=== PATIENT | male | born 1975 | race Caucasian/White ===

== ENCOUNTER 2021-04-18 21:40 | Observation (INO) ==
[2021-04-19] MEDS ORDERED: Ondansetron 4 MG/2 ML VIAL IVP PRN (01:24)
[2021-04-19] MEDS ORDERED: Naloxone 0.4 MG/ML INJ IVP PRN (01:24)
[2021-04-19] MEDS ORDERED: Melatonin 3 MG TABLET PO PRN (01:24)
[2021-04-19] MEDS ORDERED: *HR* Heparin 5,000 UNIT/ML VIAL IVP ONE (02:25)
[2021-04-19] MEDS ORDERED: *HR* Heparin 5,000 UNIT/ML VIAL IVP PRN ×2 (02:25)
[2021-04-19] MEDS ORDERED: Heparin 25,000UNIT/250ML 1/2NS 25,000 UNIT/250 ML IV.SOLN IVC SCH (02:30)
[2021-04-19 03:26] LABS: Basophils # 0.1 K/mcL (0.0-0.2); Basophils % 0.6 %; Eosinophils # 0.3 K/mcL (0.0-0.6); Eosinophils % 2.9 %; Hematocrit 42.1 % (37.5-50.1); Hemoglobin 14.2 g/dL (12.9-16.9); Immature Granulocytes % 0.4 % (0-4); Lymphocytes # 2.4 K/mcL (0.6-4.6); Lymphocytes % 24.2 %; Mean Corpuscular HGB Conc 33.7 g/dL (31.6-35.5); Mean Corpuscular Hemoglobin 30.9 pg (28.0-33.3); Mean Corpuscular Volume 91.7 fL (83.0-100.0); Mean Platelet Volume 9.4 fL (9.4-12.4); Monocytes # 0.8 K/mcL (0.0-1.3); Monocytes % 7.7 %; Neutrophils # 6.4 K/mcL (1.6-8.9); Platelet Count 335 K/mcL (140-400); Red Blood Count 4.59 M/mcL (4.19-5.50); Segmented Neutrophils % 64.2 %
[2021-04-19 03:35] LABS: Heparin anti-factor XA UFH 0.49 IU/mL (0.30-0.70); Prothrombin Time 11.3 Seconds (9.4-12.1)
[2021-04-19 03:55] LABS: Alanine Aminotransferase 11 Units/L (7-52); Albumin 3.7 g/dL (3.5-5.7); Albumin/Globulin Ratio 1.3 (1.1-2.2); Alkaline Phosphatase 131 Units/L (34-104); Aspartate Amino Transferase 14 Units/L (13-39); BUN/Creatinine Ratio 17 (6-26); Bilirubin,Total 0.4 mg/dL (0.3-1.0); Blood Urea Nitrogen 14 mg/dL (6-20); Calcium 9.3 mg/dL (8.6-10.3); Carbon Dioxide 24 mEq/L (23-29); Chloride 105 mEq/L (98-107); Globulin 2.8 g/dL (2.4-3.5); Glucose 177 mg/dL (70-105); Magnesium 1.9 mg/dL (1.6-2.6); Osmolality,Calculated 289 (280-300); Phosphorous 4.6 mg/dL (2.7-4.5); Potassium 3.8 mEq/L (3.5-5.1); Sodium 137 mEq/L (136-145); Total Protein 6.5 g/dL (6.4-8.9); Troponin I 0.33 ng/mL (< 0.04); eGFR For African Americans > 60 (> 60); eGFR For Non-African Americans > 60 (> 60)
[2021-04-19] MEDS ORDERED: *HR* LORazepam 2 MG/ML VIAL IVP PRN ×3 (06:37)
[2021-04-19] MEDS ORDERED: *HR* Dextrose 50 % in Water (Vial) 50 ML VIAL IVP PRN (06:41)
[2021-04-19] MEDS ORDERED: D5% in Water 1,000 ML IVC PRN (06:41)
[2021-04-19] MEDS ORDERED: Dextrose Gel 15 GM/37.5 ML TUBE PO PRN ×2 (06:41)
[2021-04-19] MEDS ORDERED: Perflutren Lipid Microsphere 1.3 ML in 0.9 % Sodium Chloride 8.7 ML IVP PRN (06:42)
[2021-04-19] MEDS: Thiamine (B-1) 100 MG, Folic Acid 1 MG, MVI, adult with vitamin K 10 ML in 0.9 % Sodi... IVPB SCH ×2 (07:52→17:37)
[2021-04-19] MEDS: Morphine Sulfate 2 MG/ML SYRINGE IVP PRN ×4 (08:11→23:15)
[2021-04-19 10:00] LABS: Troponin I 0.33 ng/mL (< 0.04)
[2021-04-19] MEDS: Aspirin Enteric Coated 81 MG Tablet PO SCH (10:45)
[2021-04-19] MEDS ORDERED: *HR* FentaNYL (PF) 100 MCG/2 ML VIAL ONE (12:34)
[2021-04-19] MEDS ORDERED: 0.9 % Sodium Chloride 2,000 ML ONE (12:34)
[2021-04-19] MEDS ORDERED: *HR* Midazolam HCl 2 MG/2 ML VIAL ONE (12:34)
[2021-04-19] MEDS ORDERED: ISOVUE-370 200 ML INFUS..BTL ONE (12:35)
[2021-04-19] MEDS ORDERED: Nitroglycerin 1,000 MCG/5 ML VIAL IV ONE (12:35)
[2021-04-19] MEDS ORDERED: Heparin 1,000 UNITS/500 mL 500 ML ONE (12:35)
[2021-04-19] MEDS ORDERED: *HR* Heparin 10,000 UNIT/10 ML VIAL ONE (12:35)
[2021-04-19] MEDS: Insulin LISPRO 300 UNITS/3 ML VIAL SUBQ SCH ×3 (13:07→23:13)
[2021-04-19] MEDS: 0.9 % Sodium Chloride 1,000 ML IVC SCH (16:32)
[2021-04-19] MEDS: Doxycycline 100 MG CAPSULE PO SCH (20:05)
[2021-04-20 01:22] LABS: Hematocrit 40.3 % (37.5-50.1); Hemoglobin 13.7 g/dL (12.9-16.9); Mean Corpuscular Hemoglobin 31.2 pg (28.0-33.3); Mean Corpuscular Volume 91.8 fL (83.0-100.0); Mean Platelet Volume 9.2 fL (9.4-12.4); Platelet Count 346 K/mcL (140-400); Red Blood Count 4.39 M/mcL (4.19-5.50); Red Cell Distribution Width 11.7 % (11.5-14.5); White Blood Count 9.3 K/mcL (4.3-11.1)
[2021-04-20 01:38] LABS: BUN/Creatinine Ratio 16 (6-26); Blood Urea Nitrogen 13 mg/dL (6-20); Calcium 8.4 mg/dL (8.6-10.3); Carbon Dioxide 21 mEq/L (23-29); Chloride 109 mEq/L (98-107); Glucose 91 mg/dL (70-105); Osmolality,Calculated 282 (280-300); Sodium 136 mEq/L (136-145); eGFR For African Americans > 60 (> 60); eGFR For Non-African Americans > 60 (> 60)
[2021-04-20] MEDS: 0.9 % Sodium Chloride 1,000 ML IVC SCH ×2 (01:49→12:27)
[2021-04-20] MEDS: Insulin LISPRO 300 UNITS/3 ML VIAL SUBQ SCH ×2 (05:12→11:43)
[2021-04-20] MEDS ORDERED: Isosorbide MONOnitrate (24 HR) 30 MG TAB.ER.24H PO SCH (09:00)
[2021-04-20] MEDS: Doxycycline 100 MG CAPSULE PO SCH (09:08)
[2021-04-20] MEDS: Morphine Sulfate 2 MG/ML SYRINGE IVP PRN (09:08)
[2021-04-20] MEDS: Aspirin Enteric Coated 81 MG Tablet PO SCH (09:09)
[2021-04-20 10:59] VITALS: BP 118/50; PULSE 57; TEMP 98.4; O2SAT 97
== END 2021-04-20 13:58 | disposition home or self-care (01) ==
LOC: 2NNU → SUATTDRO 04-19 00:21
PROVIDERS: ADMIT Family Medicine; ATTEND Internal Medicine